=== PATIENT | male | born 1950 | race Caucasian/White ===

== ENCOUNTER 2023-10-17 07:19 | Day surgery (SDC) | payer MEDICARE, OTHER ==
[~2023-10-17 07:19] MED LIST: Dextrose 5%-0.45% NaCl 1,000 ML IV SCH
[2023-10-17] MEDS ORDERED: Midazolam 1 MG/ML 2 ML SDV ONE (07:22)
[2023-10-17] MEDS ORDERED: fentaNYL 100 MCG/2 ML SDV IV ONE ×3 (07:22→08:01)
[2023-10-17] MEDS ORDERED: Midazolam 1 MG/ML 2 ML SDV IV ONE ×5 (07:22→08:09)
[2023-10-17] MEDS ORDERED: fentaNYL 100 MCG/2 ML SDV ONE (07:22)
[2023-10-17 10:02] VITALS: PULSE 62
[2023-10-17 10:03] VITALS: BP 124/80
== END 2023-10-17 10:15 | disposition home or self-care (01) ==
LOC: DL.ENDO 07:19
PROVIDERS: ATTEND Internal Medicine Gastroenterology
DX: Z12.11 Encounter for screening for malignant neoplasm of colon (principal); E78.00 Pure hypercholesterolemia, unspecified; F41.1 Generalized anxiety disorder; Z98.890 Other specified postprocedural states; K21.9 Gastro-esophageal reflux disease without esophagitis
CPT/HCPCS: G0121; J2250; J3010; J7042